=== PATIENT | male | born 1990 | race African-American/Black ===

== ENCOUNTER 2021-05-11 21:59 | Emergency (ER) | payer SELFPAY ==
[~2021-05-11] VITALS: Ht 180.3 cm; Wt 71.0 kg
[2021-05-12] MEDS ORDERED: BACITRACIN ZINC OINT UDPKT TOP ONE (00:45)
[2021-05-12] MEDS ORDERED: LIDOCAINE HCL/EPINEPHRINE 1%-EPI 1:100,000 20 ML VIAL INFIL ONE (00:45)
[2021-05-12] MEDS ORDERED: IBUPROFEN 600MG TABLET PO ONE (01:30)
[2021-05-12] MEDS ORDERED: SULFAMETHOXAZOLE/TRIMETHOPRIM 800/160MG TABLET PO ONE (01:30)
[2021-05-12] MEDS ORDERED: ACETAMINOPHEN 325MG TABLET PO ONE (01:30)
[2021-05-12] MEDS ORDERED: TOPUD MT (01:33)
[2021-05-12] MEDS ORDERED: IBUP-2028 MT (01:33)
[2021-05-12] MEDS ORDERED: SULF1TAB48 MT (01:33)
[2021-05-12 02:28] VITALS: BP 130/62
== END 2021-05-12 02:43 | disposition home or self-care (01) ==
LOC: ER 21:59
DX: L02.214 Cutaneous abscess of groin (principal)
CPT/HCPCS: 10060; 99284; J3490; Z7610